=== PATIENT | female | born 1960 ===

== ENCOUNTER 2023-08-25 07:00 | Outpatient (NON) | payer BC, SELFPAY | END 2023-08-25 07:01 | disposition home or self-care (01) | LOC: ANHLAB 08-26 16:00 | PROVIDERS: Visit Provider Nurse Practitioner | DX: D48.5 Neoplasm of uncertain behavior of skin (principal); L30.8 Other specified dermatitis; L57.0 Actinic keratosis; F42.4 Excoriation (skin-picking) disorder | CPT/HCPCS: 88305 ==